=== PATIENT | female | born 1995 | race Caucasian/White ===

== ENCOUNTER 2020-12-26 02:15 | Emergency (ER) | payer OTHER ==
[~2020-12-26] VITALS: Ht 165.1 cm; Wt 83.9 kg
--- NOTE | 2020-12-26 02:51 | NUR ---
PT AAOX4. AMBULATORY WITH STEADY GAIT. BIBSELF C/O GENERALIZED HIVES SINCE LAST NIGHT. REC'D BENADRYL 25MG [employer]STRUCTION[employer]IST. IV LINE PLACED IN LH 20G, AWAITING FOR ER MD FOR EVAL AND ORDERS.
[2020-12-26] MEDS ORDERED: diphenhydrAMINE HCL 50 MG/ML VIAL ONE (03:13)
[2020-12-26] MEDS ORDERED: FAMOTIDINE/PF INJ 20 MG/2 ML VIAL IV ONE (03:14)
[2020-12-26] MEDS: diphenhydrAMINE HCL 50 MG/ML VIAL IV ONE (03:30)
[2020-12-26] MEDS: IV NS 0.9% 1,000 ML IV ONE (03:30)
[2020-12-26] MEDS: FAMOTIDINE/PF INJ 20 MG/2 ML VIAL IV ONE (03:30)
--- NOTE | 2020-12-26 03:41 | NUR ---
PT MEDICATED, VSS.
--- NOTE | 2020-12-26 05:35 | NUR ---
PT AWAKE, STATED SHE FEELS BETTER, NOT ITCHING ANYMORE.
[2020-12-26] MEDS ORDERED: DIPH25TA25 PO (05:46)
[2020-12-26 05:57] VITALS: BP 111/65
--- NOTE | 2020-12-26 05:57 | NUR ---
IV removed. Catheter intact and site benign. Pressure and 4x4 applied to site. No bleeding noted. Patient discharged to home in stable condition. Written and verbal after care instructions given. Patient verbalizes understanding of instruction and RX.
== END 2020-12-26 05:58 | disposition home or self-care (01) ==
LOC: ER 02:15
DX: L50.9 Urticaria, unspecified (principal); F10.10 Alcohol abuse, uncomplicated; Y90.9 Presence of alcohol in blood, level not specified
CPT/HCPCS: 96361; 96374; 96375; 99284; J1200; J3490; J7030